=== PATIENT | female | born 1970 | race African-American/Black ===

== ENCOUNTER 2017-03-09 13:46 | Emergency (ER) | payer OTHER ==
[2017-03-09 13:53] VITALS: BP 145/99; PULSE 104; TEMP 98; BMI 32.4
--- NOTE | 2017-03-09 14:44 | PDOC ---
History of Present Illness - General Chief Complaint: Injury Stated Complaint: INJURY Time Seen by Provider: 03/09/17 14:23 History Source: Patient Exam Limitations: No Limitations - History of Present Illness Initial Comments: 03/09/17 14:43 46 yr female twisted her right ankle yesterday on uneven sidewalk Occurred: reports: yesterday Severity: Yes: moderate Lower Extremity Pain Location: right: ankle Method of Injury: Yes: twisted Lower Ext. Injury Location - Specific Injury Location Ankle: right swelling Past History - Past Medical History Allergies/Adverse Reactions: Allergies Allergy/AdvReac Type Severity Reaction Status Date / Time peanut Allergy Severe Verified 03/09/17 13:53 Home Medications: Ambulatory Orders NK [No Known Home Medication] 03/09/17 - Surgical History Abdominal Surgery: (D&C) Cholecystectomy: Yes - Psycho/Social/Smoking Cessation Hx Suicidal Ideation: No Smoking History: Current every day smoker Number of Cigarettes Smoked Daily: 5 Information on smoking cessation initiated: No 'Breaking Loose' booklet given: 02/17/16 Hx Alcohol Use: No Drug/Substance Use Hx: No Substance Use Type: None Review of Systems - Review of Systems Able to Perform ROS?: Yes Is the patient limited [place]ian proficient: No Constitutional: No: Symptoms Reported HEENTM: No: Symptoms Reported Respiratory: No: Symptoms reported Cardiac (ROS): No: Symptoms Reported ABD/GI: No: Symptoms Reported : No: Symptoms Reported Musculoskeletal: Yes: See HPI *Physical Exam - Vital Signs Last Vital Signs Temp Pulse Resp BP Pulse Ox 98 F 104 H 18 145/99 100 03/09/17 13:50 03/09/17 13:50 03/09/17 13:50 03/09/17 13:50 03/09/17 13:50 - Physical Exam General Appearance: Yes: Nourished, Appropriately Dressed HEENT: positive: EOMI, DOROTHY Neck: positive: Supple Respiratory/Chest: positive: Lungs Clear, Normal Breath Sounds Extremity: positive: Normal Capillary Refill, Tender (lateral right malleolus , nv intact ) Integumentary: positive: Normal Color, Dry, Warm Neurologic: positive: Fully Oriented, Alert, Normal Mood/Affect, Normal Response , Motor Strength 5/5 Procedures - Splinting Pre-Made Type: aircast (crutches) Medical Decision Making - Medical Decision Making 03/09/17 15:15 cc: right ankle pain and swelling after twisting on uneven sidewalk yesterday will r/o xray to r/o fracture pt has history of right ankle sprain in the past no allergies 03/09/17 15:16 *DC/Admit/Observation/Transfer Diagnosis at time of Disposition: Right ankle sprain Qualifiers: Encounter type: initial encounter Involved ligament of ankle: unspecified ligament Qualified Code(s): S93.401A - Sprain of unspecified ligament of right ankle, initial encounter - Discharge Dispostion Disposition: HOME Condition at time of disposition: Improved - Referrals Referrals: Misbah Valles MD [Staff Physician] - - Patient Instructions Additional Instructions: follow with the orthopedist next week if pain and swelling has not improved or is worse use crutches to ambulate do not put weight on the ankle if pain continues take motrin (advil, ibuprofen, over the counter) for pain elevate and apply ice every 2hrs for 15 minutes use the splint at all times except to bathe
== END 2017-03-09 16:00 | disposition home or self-care (01) ==
LOC: JERFT 13:46
PROC: 2W3QX1Z Immobilization of Right Lower Leg using Splint (ICD-10-PCS; principal; 2017-03-09)
DX: S93.401A Sprain of unspecified ligament of right ankle, initial encounter (principal); X50.1XXA Overexertion from prolonged static or awkward postures, initial encounter; Y93.01 Activity, walking, marching and hiking; Y92.480 Sidewalk as the place of occurrence of the external cause; F17.210 Nicotine dependence, cigarettes, uncomplicated
CPT/HCPCS: 29515; 73610-TC-RT; 73630-TC-RT; 84703; 99281-25

== ENCOUNTER 2020-12-13 18:43 | Emergency (ER) | payer OTHER ==
[2020-12-13 18:54] VITALS: BP 152/84; PULSE 92; TEMP 98.8; BMI 39.4
[2020-12-13] MEDS ORDERED: LIDOCAINE HCL 2% JELLY (30 ML/TUBE) TP ONE (19:50)
[2020-12-13] MEDS ORDERED: KETOROLAC TROMETHAMINE 30 MG/1 ML VIAL IM ONE (19:50)
[2020-12-13] MEDS ORDERED: LIDOCAINE HCL 2% JELLY (5 ML/TUBE) ONE (19:54)
[2020-12-13] MEDS ORDERED: KETOROLAC TROMETHAMINE 30 MG/1 ML VIAL ONE (19:54)
== END 2020-12-13 20:32 | disposition home or self-care (01) ==
LOC: JERFT 18:43
PROC: 3E0233Z Introduction of Anti-inflammatory into Muscle, Percutaneous Approach (ICD-10-PCS; principal; 2020-12-13)
DX: K05.30 Chronic periodontitis, unspecified (principal); K08.89 Other specified disorders of teeth and supporting structures
CPT/HCPCS: 99284-25

== ENCOUNTER 2020-12-28 12:35 | Emergency (ER) | payer BC, OTHER ==
[2020-12-28 12:41] VITALS: BP 120/81; PULSE 96; TEMP 98.2; BMI 37.4
== END 2020-12-28 13:48 | disposition home or self-care (01) ==
LOC: JERFT 12:35
DX: G50.0 Trigeminal neuralgia (principal)
CPT/HCPCS: 99281-25

== ENCOUNTER 2020-12-31 09:23 | Emergency (ER) | payer BC, OTHER ==
[2020-12-31 09:29] VITALS: BP 100/60; PULSE 74; TEMP 98; BMI 37.4
[2020-12-31] MEDS ORDERED: KETOROLAC TROMETHAMINE 60 MG/2 ML VIAL IM ONE (10:01)
[2020-12-31] MEDS ORDERED: KETOROLAC TROMETHAMINE 30 MG/1 ML VIAL ONE (10:03)
== END 2020-12-31 10:38 | disposition home or self-care (01) ==
LOC: JERFT 09:23
PROC: 3E023GC Introduction of Other Therapeutic Substance into Muscle, Percutaneous Approach (ICD-10-PCS; principal; 2020-12-31)
DX: G50.0 Trigeminal neuralgia (principal)
CPT/HCPCS: 99284-25

== ENCOUNTER 2022-08-29 09:16 | Emergency (ER) | payer OTHER ==
[2022-08-29 09:24] VITALS: BP 137/88; PULSE 94; RESP 20; TEMP 98.8; BMI 39.4
[2022-08-29] MEDS ORDERED: CYCLOBENZAPRINE HCL 10 MG TABLET (FP) PO ONE (10:25)
[2022-08-29] MEDS ORDERED: KETOROLAC TROMETHAMINE 30 MG/1 ML VIAL IM ONE (10:25)
[2022-08-29] MEDS ORDERED: KETOROLAC TROMETHAMINE 30 MG/1 ML VIAL ONE (10:27)
[2022-08-29] MEDS ORDERED: CYCLOBENZAPRINE HCL 10 MG TABLET (FP) ONE (10:27)
== END 2022-08-29 13:23 | disposition home or self-care (01) ==
LOC: JERFT 09:16
PROC: 3E0233Z Introduction of Anti-inflammatory into Muscle, Percutaneous Approach (ICD-10-PCS; principal; 2022-08-29)
DX: R07.82 Intercostal pain (principal); M25.511 Pain in right shoulder; M25.561 Pain in right knee; W00.0XXA Fall on same level due to ice and snow, initial encounter
CPT/HCPCS: 71046-TC-FY; 71101-TC-LT-FY; 73030-TC-RT-FY; 73562-TC-RT-FY; 99285-25